=== PATIENT | female | born 1955 | race Caucasian/White ===

== ENCOUNTER 2025-05-19 07:16 | Day surgery (SDC) | payer MEDICARE, SELFPAY ==
[2025-05-19 07:27] VITALS: BMI 25.0
[2025-05-19 07:32] VITALS: BP 139/94; PULSE 83; RESP 18; O2SAT 99
[2025-05-19 07:39] VITALS: PULSE 83
[2025-05-19] MEDS: FENTANYL 100MCG/2ML VIAL 25 MCG IV (07:45)
[2025-05-19] MEDS: MIDAZOLAM HCL 1MG/ML 5ML VIAL 1 MG IV (07:45)
[2025-05-19 08:26] VITALS: BP 128/87; PULSE 63; RESP 20; O2SAT 97
--- NOTE | 2025-05-19 08:27 | ECG_ITS ---
APPROVED REPORT Exam: Resting ECG HR:59 bpm ECG Measurements Heart Rate 59 AXES CA 197 P 57 QRSd 81 QRS -26 QT 432 T 19 QTc 431 Conclusion SINUS BRADYCARDIA LEFT ATRIAL Abnormality [-0.1mV P-WAVE IN V1/V2] LEFT AXIS DEVIATION [QRS AXIS < -20] BORDERLINE ECG UNCONFIRMED REPORT Electronically signed by : Efren Anders MD 05/20/2025 11:58:38
[2025-05-19 08:36] VITALS: BP 119/68; PULSE 56; RESP 20; O2SAT 98
[2025-05-19 08:39] VITALS: PULSE 58
--- NOTE | 2025-05-19 08:49 | SUR.PHASEII ---
instructions given to pateint spouse, folder given to patient at discharge.
--- NOTE | 2025-05-19 08:53 | P.PCN_ITS ---
[facility] Cardioversion Cardioversion Date: 05/19/25 Provider:: ESE Dc Procedure Performed:: Synchronized cardioversion Diagnosis:: Atrial fibrillation Procedure Summary:: Patient was brought to the cardiac Access Director as an outpatient. After informed consent was obtained, sedation was achieved with combination of Versed and Phenergan. Patient did receive 2 separate synchronized shocks (150 J and 200 J) before achieving sustained sinus rhythm. Patient tolerated the procedure without complications. Complications:: None Conculsion:: Routine postop care. Continue home medications including oral anticoagulation. Follow-up with Dr. Soto in 1 week.
== END 2025-05-19 08:50 | disposition home or self-care (01) ==
PROVIDERS: PCP Family Medicine; Visit Provider Internal Medicine
PROC: 5A2204Z Restoration of Cardiac Rhythm, Single (ICD-10-PCS; principal; 2025-05-19 07:15)
DX: I48.91 Unspecified atrial fibrillation (principal); R06.09 Other forms of dyspnea; Z85.3 Personal history of malignant neoplasm of breast; Z79.01 Long term (current) use of anticoagulants; Z79.899 Other long term (current) drug therapy
CPT/HCPCS: 92960; 93005; 99152; J3010